=== PATIENT | female | born 1950 | race Caucasian/White ===

== ENCOUNTER 2025-01-03 10:55 | Emergency (ER) | payer MEDICARE, MEDICAID, SELFPAY ==
--- NOTE | 2025-01-03 11:14 | PD.EDBACK ---
ED Back Injury Pain RME/HPI General Chief Complaint: Back Pain/Injury Stated Complaint: BACK INJURY Time Seen by Provider: 01/03/25 10:58 Arrival date/time: 01/03/25 10:55 Limitations: no limitations RME / HPI RME / HPI Narrative: 74-year-old female is here today requesting refills of tramadol for chronic back pain. She states she recently moved back to the area has no primary care provider. She has a upcoming appointment with pain management to be evaluated on mid January. She denies any abdominal pain, nausea, vomiting. No flank pain. No dysuria. Has no changes in urination. She is self ambulating without weakness. Has had no changes in bowel movements. Denies any fevers. She states she was seen off-site a few days ago and was given ibuprofen 800 mg that is not helping. She has no other acute complaints. Related Data Previous Rx's ?Medication ?Instructions ?Recorded methocarbamol 750 mg tablet 750 mg PO Q8H #20 tabs 01/03/25 tramadol 25 mg tablet 25 mg PO Q6H PRN pain #14 tabs 01/03/25 Allergies Allergy/AdvReac Type Severity Reaction Status Date / Time Penicillins Allergy Rash Verified 01/03/25 10:58 Review of Systems Review of Systems Systems Reviewed: All systems reviewed, normal except as documented ED Exam General Limitations: Present no limitations General appearance: Present alert and in no apparent distress Head Head exam: Present atraumatic Eye Eye exam: Present normal appearance, PERRL and EOMI ENT ENT exam: Present normal exam, normal oropharynx and mucous membranes moist Neck Neck exam: Present normal inspection, full ROM and trachea midline Chest Chest inspection: Present normal inspection and symmetric chest wall rise Respiratory Respiratory exam: Present normal lung sounds bilaterally Cardiovascular Cardiovascular exam: Present regular rate, normal rhythm and normal heart sounds Abdominal Exam Abdominal exam: Present soft and normal bowel sounds Extremities Exam Extremities exam: Present normal inspection and full ROM Back Exam Back exam: Present normal inspection and full ROM Neurological Exam Neurological exam: Present alert, oriented X3 and CN II-XII intact Psychiatric Psychiatric exam: Present other (Patient is answering questions appropriately. She is quite anxious appearing. She is pacing. She is tapping her fingers along the counter. She is not responding to any internal stimuli.) Skin Skin exam: Present warm, dry, intact and normal color Course Quality Measures none Orders Category Date Time Status CBC [CBC] Stat Lab 01/03/25 11:28 Completed CMP [Comprehensive Metabolic Panel] Stat Lab 01/03/25 11:28 Completed Drug Screen,Urine Stat Lab 01/03/25 12:40 Completed UA [Urinalysis] Stat Lab 01/03/25 11:55 Completed methocarbamoL [Robaxin] Med 01/03/25 10:59 Discontinued 750 mg PO X1 ONE Vital Signs Vital signs: Vital Signs Temperature 98.2 F 01/03/25 11:47 Pulse Rate 62 01/03/25 11:47 Respiratory Rate 18 01/03/25 11:47 Blood Pressure 158/69 H 01/03/25 11:47 Pulse Oximetry (%) 98 01/03/25 11:47 Oxygen Delivery Method Room Air 01/03/25 11:47 Back Pain / Injury MDM Narrative MDM Narrative:: 74-year-old female is here today requesting refills of tramadol. She recently moved back to the area and has chronic low back pain. She states she has an initial appointment with pain management next month but ran out of her medications. She denies any rectal paresthesias. Has no fevers. Denies any changes of bowel movements or urination. She is self ambulating without assistance. She has no distal sensation changes. Patient is nontoxic-appearing in no visible signs of distress. She was given a dose of methocarbamol here. She will be discharged with a prescription of methocarbamol. Will provide a short-term prescription of tramadol. She will follow-up with her pain management clinic as planned. Return here as needed for any worsening emergent changes. Patient data External records reviewed:: None Clinical information provided by:: patient Social determinants that could affect healthcare access:: none Patient has the following chronic illnesses:: chronic back pain How is presenting disease/condition affected by chronic disease/condition?: exacerbated by Evaluation data The following diagnostics were reviewed and interpreted by me:: lab results Lab and/or radiology exams considered but not ordered:: n/a Interpretation Summary: CBC reveals no leukocytosis, metabolic panel reveals no renal disease. Urinalysis reveals no evidence of UTI Medications / Prescriptions Medications or Prescriptions considered but not ordered:: n/a Medication administrations:: Medication Administration History Discontinued Medications Methocarbamol (Methocarbamol 500 Mg Tablet) 750 mg PO X1 ONE Stop: 01/03/25 11:00 Last Admin: 01/03/25 11:40 Dose: 750 mg Documented By: ESTEE See above Consultations Consultation(s) initiated? (list below): No Diagnosis Differential diagnosis back pain/injury: lumbar radiculopathy, sciatica and strain of lumbar region Most likely diagnosis given after review of the tests above:: chronic back pain Admission Indicated Admission indicated?: not indicated Admission Request Was there a request for admission?: No Disposition Plan Disposition Plan: Discharge Discharge Attestation Discharge Attestation: The patient and all family members were given an opportunity to ask questions and understood the discharge instructions. Discharge instructions specifically effects, indications for sooner follow up or return to the emergency department, and the expected course of current diagnosis. Patient condition: Stable Discharge Plan Plan Patient Disposition: HOME (Self Care) Patient condition on transfer: Stable Prescriptions/Referrals Prescriptions/Med Rec: New methocarbamol 750 mg tablet 750 mg PO Q8H Qty: 20 0RF tramadol 25 mg tablet 25 mg PO Q6H PRN (Reason: pain) Qty: 14 0RF Referrals: No Primary/Family,Physician [Primary Care Provider] - In 1 week Problem List Clinical Impression: Chronic lumbar pain Patient/Caregiver Discharge Instructions Education Materials: ED Back Care Tips, ED Back Pain (Acute or Chronic) Additional Instructions: Follow-up with pain management as planned. Please return to the emergency room as needed for any worsening or emergent changes. Print Language: Sinhala Stand Alone Forms: Maggie Award Info., Patient Portal Info Letter
[2025-01-03] MEDS: methocarbamoL 500 MG TABLET 750 MG PO (11:40)
[2025-01-03 11:47] VITALS: BP 158/69; PULSE 62; RESP 18; TEMP 36.8; O2SAT 98
[2025-01-03 11:52] LABS: Basophils # (Auto) 0.1 Thou/mm3 (0.0-0.2); Basophils % (Auto) 1 % (0-2.5); Eosinophils # (Auto) 0.3 Thou/mm3 (0.0-0.5); Eosinophils % (Auto) 5 % (0-10); Hematocrit 35.8 % (36.0-46.0); Hemoglobin 12.2 g/dL (12.0-16.0); Immature Granulocytes % (Auto) 0 % (0-0); Immature Granulocytes Auto 0.02 Thou/mm3 (0.00-0.00); Lymphocytes # (Auto) 1.8 Thou/mm3 (1.0-4.8); Lymphocytes % (Auto) 31 % (10-50); Mean Corpuscular HGB Conc 34.1 g/dl (31.0-37.0); Mean Corpuscular Hemoglobin 28.4 pg (25.0-35.0); Mean Corpuscular Volume 83 fL (80-100); Monocytes # (Auto) 0.5 Thou/mm3 (0.0-0.8); Monocytes % (Auto) 9 % (0-12); Neutrophils # (Auto) 3.2 Thou/mm3 (1.8-7.7); Neutrophils % (Auto) 54 % (37-80); Nucleated Red Blood Cell % 0 /100 WBC (0); Platelet Count 320 Thou/mm3 (140-440); Red Blood Count 4.29 Miln/mm3 (4.00-5.20); White Blood Count 5.9 Thou/mm3 (3.6-11.0)
[2025-01-03 12:01] LABS: Alanine Aminotransferase 66 U/L (10-49); Albumin, Serum 4.4 gm/dL (3.4-4.8); Albumin/Globulin Ratio 2.1 (1.2-2.2); Alkaline Phosphatase 129 U/L (46-116); Anion Gap 10 (7-16); Aspartate Amino Transferase 26 U/L (0-34); BUN/Creatinine Ratio 14 Ratio (12-20); Bilirubin,Total 0.3 mg/dL (0.3-1.2); Blood Urea Nitrogen 15 mg/dL (9-23); Calcium 9.2 mg/dL (8.3-10.6); Calcium (Corrected) 9.2 mg/dL (8.5-10.1); Carbon Dioxide 23.5 mMol/L (20.0-31.0); Chloride 108 mMol/L (98-107); Creatinine (Component) 1.1 mg/dL (0.6-1.3); Globulin 2.1 gm/dL (2.3-3.5); Glucose 123 mg/dL (74-106); Osmolality,Calculated 283 (275-295); Potassium 4.3 mMol/L (3.4-5.1); Sodium 141 mMol/L (136-145); Total Protein 6.5 gm/dL (5.7-8.2); eGFR 52 See Note
--- NOTE | 2025-01-03 12:15 | PC.NURSE ---
PT PROVIDED URINE SAMPLE (SMALL AMOUNT) LID WAS NOT ON AND SPILLED INTO BAG. PT AWARE URINE SPILLED FROM CUP AND WILL NEED TO PROVIDE NEW SAMPLE
[2025-01-03 13:18] LABS: Amphetamine/Methamp Scrn,U Negative (Negative); Barbiturate Screen,Urine Negative (Negative); Benzodiazepines Screen,Urine Negative (Negative); Benzoylecgonine Screen, Ur Negative (Negative); Fentanyl Screen,Urine Negative (Negative); Opiate Screen,Urine Positive (Negative); THC Screen,Urine Negative (Negative)
[2025-01-03 13:41] LABS: Collection Type, Urine Voided
[2025-01-03 13:51] LABS: Bilirubin,Urine Negative (Negative); Blood,Urine Negative (Negative); Clarity,Urine Clear (Clear/Hazy); Color,Urine Yellow (Lt Yel-Yel); Glucose, Urine Negative (Negative); Ketones,Urine Trace (Negative); Leukocyte Esterase,Urine Positive (Negative); Nitrite,Urine Negative (Negative); Protein,Urine Negative (Neg - Trace); RBC,Urine 1 /hpf (0-3); Specific Gravity,Urine 1.029 (1.001-1.035); Squamous Epithelial Cell,Urine 5 /hpf (0-5); Urobilinogen,Urine Negative mg/dL (0.0-1.0); WBC,Urine 3 /hpf (0-5)
[2025-01-03 15:05] VITALS: BP 167/83; PULSE 63; RESP 18; TEMP 36.7; O2SAT 96
[2025-01-03 15:06] VITALS: BMI 22.4
== END 2025-01-03 15:40 | disposition home or self-care (01) ==
PROVIDERS: Physician Assistant Medical; Emergency Provider Family Medicine
DX: G89.29 Other chronic pain (principal); M54.50 Low back pain, unspecified
CPT/HCPCS: 36415; 80053; 80307; 81001; 85025; 99283

== ENCOUNTER → 2025-03-25 | Outpatient (CLI) | payer MEDICARE, MEDICAID, SELFPAY ==
--- NOTE | 2025-03-25 15:30 | XR_ITS ---
Examination: MRI lumbar spine without contrast Date and time of exam: March 25, 2025 1724 hrs., Comparison April 20, 2008 Indications: Lower back pain beginning 10 years ago after fall injury in worse Technique: Multiple MRI axial and sagittal sections lumbar spine. Sagittal T2-weighted images, TR 3500, TE 118 T1 weighted transverse sections, TR 688 T8.5, T2-weighted sagittal sections T1 weighted sagittal sections TR 621, TE 30 T2 axial sections, TR 4, 190, TE 84. Findings: Adequate alignment lumbar vertebral bodies on the lateral view No lumbar fracture Adequate marrow signal lumbar vertebral bodies. Moderate lumbar spondylosis. Diffuse moderate to advanced lumbar disc narrowing, most severe L4-L5, L5-S1 No spondylolisthesis L5-S1 3 mm central lumbar disc bulge contiguous with the S1 nerve roots L4-L5 4 mm central left paracentral disc bulge L3-L4 foraminal disc bulges more prominent on the right side with mild right L3 ganglionic compression L2-L3 no disc protrusion L1-L2 no disc protrusion Impression: Diffuse moderate to advanced lumbar degenerative disc disease L5-S1 3 mm central lumbar disc bulge contiguous with the S1 nerve roots L4-L5 4 mm central left paracentral disc bulge. L3-L4 foraminal disc bulges, on the right side 5 mm with mild right L3 ganglionic compression
== END | disposition home or self-care (01) ==
PROVIDERS: Referring Provider Physical Medicine & Rehabilitation Pain Medicine; Visit Provider Physical Medicine & Rehabilitation Pain Medicine
DX: M51.360 Other intervertebral disc degeneration, lumbar region with discogenic back pain only (principal); M51.370 Other intervertebral disc degeneration, lumbosacral region with discogenic back pain only; G95.20 Unspecified cord compression
CPT/HCPCS: 72148

== ENCOUNTER → 2025-06-14 | Outpatient (CLI) | payer SELFPAY ==
--- NOTE | 2025-06-14 | XR_ITS ---
Examination: Bilateral hips, AP pelvis, 5 views Technique: AP, lateral views both hips, AP pelvis, 5 views Exam date and time: June 14, 2025, 1154 hours INDICATIONS: Bilateral hip pain beginning 10 years ago FINDINGS: Moderate osteopenia Moderate narrowing hip joints No right or left hip fracture or dislocation Bones of the pelvis intact IMPRESSION: Bilateral moderate narrowing hip joints
== END | disposition home or self-care (01) ==
PROVIDERS: Referring Provider Physical Medicine & Rehabilitation Pain Medicine; Visit Provider Physical Medicine & Rehabilitation Pain Medicine
DX: M25.852 Other specified joint disorders, left hip (principal); M25.851 Other specified joint disorders, right hip
CPT/HCPCS: 73523